=== PATIENT | female | born 1955 | race Caucasian/White ===

== ENCOUNTER → 2021-06-21 | Day surgery (SDC) | payer OTHER ==
[~2021-06-21] VITALS: Ht 162.6 cm; Wt 109.5 kg
[~2021-06-21] MED LIST: AMLODIPINE BESY10 MG PO; COZAAR100 MG PO; DICYCLOMINE HCL20 MG PO; FLEXERIL5 MG PO; HYGROTON 25MG T25 MG PO; NEURONTIN300 MG PO; NORCO 5-325 TA1 EACH PO; PERCOCET 10-321 EACH PO; VITAMIN B-1250 MCG PO; VITAMIN D310 MC1 PO
[2021-06-21 07:47] LABS: INR 1.04 (0.9-1.2); PTT 36.8 SECONDS (24.4-34.7)
[2021-06-21 07:54] LABS: BUN/CREAT RATIO (CALC) 17.8 RATIO; CREATININE 0.73 mg/dL (0.51-0.95); POTASSIUM 3.5 mmol/L (3.5-5.1)
== END | disposition home or self-care (01) ==
LOC: FAS 06-07 08:00
PROVIDERS: Anesthesiology; Surgery
DX: D17.1 Benign lipomatous neoplasm of skin and subcutaneous tissue of trunk (principal); D68.9 Coagulation defect, unspecified; I78.0 Hereditary hemorrhagic telangiectasia; I10 Essential (primary) hypertension; E11.9 Type 2 diabetes mellitus without complications; G47.30 Sleep apnea, unspecified; G89.29 Other chronic pain; M54.9 Dorsalgia, unspecified; M19.90 Unspecified osteoarthritis, unspecified site; M51.36 Other intervertebral disc degeneration, lumbar region; E66.01 Morbid (severe) obesity due to excess calories; Z68.41 Body mass index [BMI] 40.0-44.9, adult; Z87.891 Personal history of nicotine dependence; Z99.89 Dependence on other enabling machines and devices; Z88.6 Allergy status to analgesic agent; Z88.8 Allergy status to other drugs, medicaments and biological substances; Z91.018 Allergy to other foods; Z79.891 Long term (current) use of opiate analgesic; Z79.899 Other long term (current) drug therapy
CPT/HCPCS: 36415; 80048; 85610; 85730; 93005; J2001; J2250; J2704; J3010; J7120